=== PATIENT | male | born 1970 | race Caucasian/White ===

== ENCOUNTER 2023-02-16 14:57 | Outpatient (REF) | payer OTHER, SELFPAY ==
[2023-02-16 16:27] LABS: Alanine Aminotransferase 29 U/L (0-40); Albumin Level 4.4 g/dL (3.5-5.0); Alkaline Phosphatase 70 U/L (39-117); Anion Gap 9 (12-20); Aspartate Amino Transferase 23 U/L (5-37); Bilirubin Direct 0.3 mg/dL (0.0-0.5); Bilirubin Total 0.5 mg/dL (0.0-1.0); Blood Urea Nitrogen 12 mg/dL (9-16); Calcium 9.8 mg/dL (8.4-10.2); Carbon Dioxide 29 mmol/L (22-29); Chloride 103 mmol/L (96-108); Cholesterol 193 mg/dL (<200); Estimated Glomerular Filt Rate > 60; Glucose Random 85 mg/dL (60-115); HDL Cholesterol 47 mg/dL (>40); LDL Cholesterol Calculated 122 mg/dL (<100); Potassium 4.3 mmol/L (3.3-5.1); Sodium 137 mmol/L (135-145); Total Protein 7.7 g/dL (6.5-8.0); Triglycerides 122 mg/dL (<150)
[2023-02-16 16:30] LABS: Estimated Average Glucose 105 mg/dL; Hemoglobin A1c % 5.3 % (<6.0)
[2023-02-19 05:34] LABS: HIV AB/AG Nonreactive (Nonreactive); HIV Num 1 0.06 S/CO (0.00-0.99); ~HepC Num1 0.07 S/CO (0.00-0.79); ~Hepatitis C Antibody Nonreactive (Nonreactive)
== END 2023-02-16 14:58 | disposition home or self-care (01) ==
LOC: HO.HHCL 14:57
PROVIDERS: Visit Provider Internal Medicine
DX: Z00.00 Encounter for general adult medical examination without abnormal findings (principal); Z11.4 Encounter for screening for human immunodeficiency virus [HIV]; E78.9 Disorder of lipoprotein metabolism, unspecified
CPT/HCPCS: 36415; 80048; 80061; 80076; 83036; 86803; 87389

== ENCOUNTER 2024-03-27 11:12 | Outpatient (REF) | payer OTHER, SELFPAY ==
[2024-03-27 13:16] LABS: MANUAL DIFF FLAG NO
[2024-03-27 13:24] LABS: Basophils Absolute Auto 0.1 X10*3/uL (0.0-0.2); Basophils Percent Auto 0.8 % (0-2); Eosinophils Absolute Auto 0.1 X10*3/uL (0.0-0.4); Hematocrit 44.2 % (42.0-52.0); Hemoglobin 15.5 g/dl (14.0-18.0); Imm Gran Abs Auto 0.04 X10*3/uL (0.00-0.03); Imm Gran Pct Auto 0.6 % (0.0-0.4); Lymphocytes Absolute Auto 2.3 X10*3/uL (1.2-4.9); Lymphocytes Percent Auto 35.6 % (20-40); Mean Corpuscular HGB Conc 35.1 g/dl (31.0-36.0); Mean Corpuscular Hemoglobin 30.2 pg (27.0-33.0); Mean Corpuscular Volume 86.2 fL (80.0-98.0); Mean Platelet Volume 9.9 fL (9.4-12.4); Monocytes Absolute Auto 0.6 X10*3/uL (0.1-1.2); Monocytes Percent Auto 9.4 % (2-11); Neutrophils Absolute Auto 3.3 x10*3/uL (2.0-8.3); Neutrophils Percent Auto 51.6 % (45-73); Platelet Count 280 X10*3/uL (160-400); Red Blood Count 5.13 X10*6/uL (4.60-5.80); White Blood Count 6.5 X10*3/uL (4.8-10.8)
[2024-03-27 13:32] LABS: Estimated Average Glucose 108 mg/dL; Hemoglobin A1C 134.4438 umol/L; Hemoglobin A1c % 5.4 % (<6.0); Total Hemoglobin (HGBA1C) 3779.8698 umol/L
[2024-03-27 14:05] LABS: Alanine Aminotransferase 36 U/L (0-40); Albumin Level 4.1 g/dL (3.5-5.0); Alkaline Phosphatase 84 U/L (39-117); Anion Gap 10 (12-20); Aspartate Amino Transferase 26 U/L (5-37); Bilirubin Total 0.6 mg/dL (0.0-1.0); Blood Urea Nitrogen 9 mg/dL (9-16); Calcium 9.8 mg/dL (8.4-10.2); Carbon Dioxide 27 mmol/L (22-29); Chloride 106 mmol/L (96-108); Cholesterol 182 mg/dL (<200); Estimated Glomerular Filt Rate > 60; Glucose Random 114 mg/dL (60-115); HDL Cholesterol 44 mg/dL (>40); LDL Cholesterol Calculated 99 mg/dL (<100); Potassium 3.7 mmol/L (3.3-5.1); Sodium 139 mmol/L (135-145); TSH reflex Free T4 0.49 uIU/mL (0.32-4.0); Total Protein 7.4 g/dL (6.5-8.0); Triglycerides 195 mg/dL (<150); Vitamin D 25-OH Total 39.1 ng/mL (>30)
[2024-03-28 09:30] LABS: HIV AB/AG Nonreactive (Nonreactive); HIV Num 1 0.05 S/CO (0.00-0.99); ~Hepatitis C Antibody Nonreactive (Nonreactive)
== END 2024-03-27 11:13 | disposition home or self-care (01) ==
LOC: HO.HHCL 11:12
PROVIDERS: Visit Provider Internal Medicine
DX: M54.50 Low back pain, unspecified (principal); G89.29 Other chronic pain
CPT/HCPCS: 36415; 80053; 80061; 82306; 83036; 84443; 85025; 86803; 87389